=== PATIENT | female | born 1995 | race Caucasian/White ===

== ENCOUNTER 2019-08-12 21:17 | Inpatient (IN) ==
[2019-08-12 22:14] LABS: URINE SOURCE VOIDED
[2019-08-12 22:20] LABS: BILIRUBIN URINE NEGATIVE (NEGATIVE); BLOOD URINE NEGATIVE (NEGATIVE); COLOR YELLOW; GLUCOSE URINE NEGATIVE (NEGATIVE); KETONE URINE TRACE mg/dL (NEGATIVE); LEUKOCYTES URINE NEGATIVE (NEGATIVE); NITRITE URINE NEGATIVE (NEGATIVE); PROTEIN URINE 30 mg/dL (NEGATIVE); TURBIDITY URINE CLEAR (CLEAR); UROBILINOGEN URINE 2 mg/dL (NORMAL)
[2019-08-12] MEDS ORDERED: AMPICILLIN 2 GM in NS 100 ML IV ONE (22:33)
[2019-08-12] MEDS ORDERED: TYLENOL PO PRN (22:33)
[2019-08-12] MEDS ORDERED: PEPCID PO ONE (22:33)
[2019-08-12] MEDS ORDERED: STADOL IV PRN (22:33)
[2019-08-12] MEDS ORDERED: PEPCID PO PRN (22:33)
[2019-08-12] MEDS ORDERED: REGLAN PO ONE (22:33)
[2019-08-12] MEDS ORDERED: ZOFRAN IV PRN (22:33)
[2019-08-12] MEDS ORDERED: KEFZOL 1 GM/D5W 1 GM/50 ML IVPB IV PRN (22:33)
[2019-08-12] MEDS ORDERED: PEPCID IV PRN (22:33)
[2019-08-12 22:40] LABS: UR AMPHETAMINES QUAL NONE DETECTED (NONE DETECT); UR BARBITUATES QUAL NONE DETECTED (NONE DETECT); UR BENZODIAZEPIN QUAL NONE DETECTED (NONE DETECT); UR CANNABINOIDS QUAL NONE DETECTED (NONE DETECT); UR COCAINE QUAL NONE DETECTED (NONE DETECT); UR METHADONE QUAL NONE DETECTED (NONE DETECT); UR OPIATES QUAL NONE DETECTED (NONE DETECT); UR OXYCODONE QUAL NONE DETECTED (NONE DETECT); UR PCP QUAL NONE DETECTED (NONE DETECT)
[2019-08-12] MEDS ORDERED: LR 1,000 ML IV SCH (22:45)
[2019-08-12] MEDS ORDERED: PITOCIN 30 UNITS/NS 30 UNIT/500 ML IV.SOLN IV SCH (22:45)
[2019-08-12] MEDS ORDERED: SODIUM CHLORIDE 0.9% INJ SCH (22:45)
[2019-08-12 23:35] LABS: BASO# 0.02 X1000 (0.0-0.2); BASO% 0.2 % (0.0-0.8); EOS# 0.05 X1000 (0.0-0.7); EOS% 0.4 % (0.0-10.0); HEMATOCRIT 40.6 % (37.0-47.0); HEMOGLOBIN 13.6 g/dL (12.0-16.0); IMM GRAN# 0.08 X1000 (0.0-0.04); IMM GRAN% 0.7 % (0.0-0.5); LYMPH% 17.2 % (20.5-51.1); MCH 31.1 PG (27-31); MCHC 33.5 g/dL (33-37); MCV 92.7 FL (81-99); MONO# 0.88 X1000 (0.11-0.59); MONO% 7.6 % (1.7-9.3); MPV 11.1 FL (7.4-10.4); NEUT# 8.57 X1000 (1.4-6.5); NEUT% 73.9 % (42.2-75.2); PLT 242 X1000 (130-400); RBC 4.38 XMIL (4.2-5.4); RDW 13.9 % (11.5-14.5)
[2019-08-13 00:18] LABS: RPR NON-REACTIVE (NONREACTIVE); RUBELLA SCREEN NON IMMUNE (IMMUNE)
[2019-08-13] MEDS ORDERED: FENTANYL ONE (00:30)
[2019-08-13] MEDS ORDERED: FENTANYL-BUPIV-NS 500 MCG-0.125% 250 ML EPIDURAL SCH (00:30)
[2019-08-13] MEDS ORDERED: NAROPIN 0.2% INJ ONE (00:32)
[2019-08-13 00:33] LABS: RAPID HIV PRESUMPTIVE NEGATIVE
[2019-08-13] MEDS ORDERED: AMPICILLIN 1 GM in NS 50 ML IV SCH (02:34)
[2019-08-13] MEDS ORDERED: MINERAL OIL MISC ONE (04:53)
[2019-08-13] MEDS ORDERED: XYLOCAINE-MPF 1% INJ ONE (04:53)
--- NOTE | 2019-08-13 06:22 | PROVIDER PROGRESS NOTE ---
Progress Note Delivery Summary Infant on the perineum with maternal effort. Viable female delivered at 0551 in cephalic presentation. Apgars 8,9 weight 6lbs 3oz. Intact placenta with 3v cord delivered at 0552. Right vaginal sidewall and 1st degree vaginal laceration were repaired in the usual fashion with a 2.0 Vicryl. EBL 200cc
[2019-08-13] MEDS ORDERED: PITOCIN 20 UNITS/NS 20 UNITS/1,000 ML IV.SOLN ONE (07:13)
[2019-08-13] MEDS ORDERED: PITOCIN IM PRN (07:29)
[2019-08-13] MEDS ORDERED: BENADRYL PO PRN (07:29)
[2019-08-13] MEDS ORDERED: BENADRYL IV PRN (07:29)
[2019-08-13] MEDS ORDERED: MOTRIN PO PRN (07:29)
[2019-08-13] MEDS ORDERED: XYLOCAINE-MPF 1% INJ PRN (07:29)
[2019-08-13] MEDS ORDERED: CYTOTEC PO PRN (07:29)
[2019-08-13] MEDS ORDERED: PERI MEDS (DERMOPLAST/NUPERCAINAL/TUCKS) MISC PRN (07:29)
[2019-08-13] MEDS ORDERED: BOOSTRIX VACCINE IM ONE (07:29)
[2019-08-13] MEDS ORDERED: HYDROXYZINE IM PRN (07:29)
[2019-08-13] MEDS ORDERED: M-M-R II VACCINE SUBQ ONE (07:29)
[2019-08-13] MEDS ORDERED: MINERAL OIL PO PRN (07:29)
[2019-08-13] MEDS ORDERED: AMBIEN PO PRN (07:29)
[2019-08-13] MEDS ORDERED: ATARAX PO PRN (07:29)
[2019-08-13] MEDS ORDERED: PITOCIN 20 UNITS/NS 20 UNITS/1,000 ML IV.SOLN IV SCH (07:30)
[2019-08-13] MEDS ORDERED: PITOCIN 30 UNITS/NS 30 UNIT/500 ML IV.SOLN IV SCH (07:30)
[2019-08-13 10:17] LABS: HIV ANTIBODY SCREEN SEE COMMENTS
[2019-08-13 10:41] LABS: HEPATITIS B SURFACE ANTIGEN SEE COMMENTS
[2019-08-13] MEDS: PERICOLACE PO SCH (20:19)
[2019-08-14 06:20] LABS: HEMATOCRIT 36.4 % (37.0-47.0); HEMOGLOBIN 11.9 g/dL (12.0-16.0); MCH 31.1 PG (27-31); MCHC 32.7 g/dL (33-37); MPV 10.3 FL (7.4-10.4); RBC 3.83 XMIL (4.2-5.4); RDW 14.4 % (11.5-14.5); WBC 12.97 X1000 (4.8-10.8)
--- NOTE | 2019-08-14 06:50 | PROVIDER DOCUMENTATION ---
This chart was entered by Waleska Guerrero Scribe, acting as scribe for Deyvi Michelle MD. HPI-Female /OB/Breast - General Chief Complaint: OB-Active Labor Stated Complaint: 39 WKS, SULY Time Seen by Provider: 08/12/19 21:20 Source: reports: patient Allergies/Adverse Reactions: Patient Allergies Allergy/AdvReac Type Severity Reaction Status Date / Time shellfish derived Allergy Severe ANAPHYLAXIS Verified 08/12/19 22:45 coconut Allergy ANAPHYLAXIS Verified 08/12/19 22:45 Home Medications: Home Medication List Medication Instructions Recorded Confirmed Last Taken Type Vit No.130/Iron/Folic 1 ea PO DAILY 08/12/19 08/12/19 08/12/19 09:00 History [ Vitamins] - History of Present Illness-Female /OB Nature of Presenting Problem: pt is a 24 yr old female, pt reports she is 39weeks , 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 water has not broke. pt denies any care. Does patient report she is ?: Yes Location of complaint: reports: other (gen abdomen) Radiation: reports: none Quality of Pain: reports: cramping Severity in ED: reports: moderate Onset/Duration: reports: 4-6 hours ago Timing: reports: changing over time, getting worse Context/Activities at Onset: reports: light activity Vaginal Symptoms: denies: abnormal bleeding, discharge, passing clots/tissue Vaginal Bleeding Amount: None Urinary Symptoms: reports: no symptoms Related Symptoms: reports: pelvic pain, abdominal pain Leakage of Fluid: none Contraception: reports: none Modifying Factors: improves with: nothing Associated Symptoms: reports: denies symptoms Similar Symptoms Previously?: No Recently seen or treated by another doctor?: No - LMP/ History Menstrual Status: currently (39 week) : 1 Para: 0 : 0 CURRENT Problems: none PREVIOUS Problems: reports: none Contractions/Pelvic Pain: reports: moderate, regular Contraction Frequency (every____min): 3 Contraction Duration (mins): 1 Review of Systems - Adult - REVIEW OF SYSTEMS - ADULT Constitutional: denies: chills, fever Eyes: reports: no symptoms reported Ears, Nose, Mouth & Throat: reports: no symptoms reported Cardiovascular: reports: no symptoms reported Respiratory: denies: cough, shortness of breath Gastrointestinal: reports: abdominal pain. denies: nausea, vomiting Genitourinary: denies: dysuria, frequency, urinary retention Musculoskeletal: denies: back pain, neck pain Integumentary: reports: no symptoms reported Neurological: reports: no symptoms reported Psychiatric: reports: no symptoms reported Endocrine: reports: no symptoms reported Hematologic/Lymphatic: reports: no symptoms reported Allergic/Immunologic: reports: no symptoms reported All Other Systems: Reviewed and Negative Past History - Adult - PAST MEDICAL HISTORY-ADULT Review of Records: reports: Nursing Assessment Review, Medications Reviewed, Social history reviewed & non-contributory. Major Childhood Illnesses: reports: denies history Cardiovascular: reports: denies history Respiratory: reports: denies history Gastrointestinal: reports: denies history Obstetrical/Gynecological: reports: denies history Genitourinary: reports: denies history Musculoskeletal: reports: denies history Neurological: reports: denies history Endocrine/Immune: reports: denies history Other Conditions: reports: denies history - IMMUNIZATION STATUS Childhood Immunizations: See Nurse Assessment Flu Vaccine: See Nurse Assessment - FAMILY HISTORY Family History: reviewed, not pertinent - SOCIAL HISTORY Living Situation: family Physical Exam-General - PHYSICAL EXAM-ADULT Initial Vital Signs Reviewed: Yes - CONSTITUTIONAL General Appearance: appears well, alert, no apparent distress - EYES Eyes: PERRL/EOMI - HEAD, EARS, NOSE, MOUTH & THROAT HENMT: normocephalic/atraumatic, moist mucous membranes, normal ENT inspection - NECK Neck: non-tender, full range of motion, supple, normal inspection - RESPIRATORY Respiratory: lungs clear, normal breath sounds - CARDIOVASCULAR Cardiovascular: normal peripheral pulses, no edema, tachycardia - GASTROINTESTINAL (ABDOMEN) Abdominal Exam: tenderness - GENITOURINARY Female Genitalia/Pelvic Exam: external exam normal, other (closed cervix). negative: blood, discharge - LYMPHATIC Lymphatic: no adenopathy - MUSCULOSKELETAL Back Exam: normal inspection Extremity: normal range of motion, non-tender, normal gait, normal inspection - SKIN Integumentary: normal color, normal turgor, warm/dry - NEUROLOGIC Neurologic: grossly normal - PSYCHIATRIC Psych/Mental Status: normal mood/affect Progress - PLAN OF CARE/RESULTS Progress/Plan/Lab Results: Orders Category Date Time Status Admit Patient To Observation Status Routine AdmDCTranf 08/12/19 22:02 Active Cont. Electronic Monitor DIRECTED Care 08/12/19 22:02 Completed Document Gestational Age NOW Care 08/12/19 22:02 Completed Heart Tones NOW Care 08/12/19 21:27 Completed URINALYSIS DIPSTICK ONLY [URINALYSIS] Urgent Lab 08/12/19 22:05 Completed URINE DRUG SCREEN Urgent Lab 08/12/19 22:05 Completed Result Diagrams: 08/14/19 06:03 08/12/19 23:00 - CONSULTS/PCP/HOSPITALIST Notification #1 *Consult/PCP/Hospitalist*: dr trinidad Time Discussed: 21:22 Reason/Comments: plan of care for pt transfer Consult Disposition: other (transfer to main for OB admit) Departure - Departure Date of Disposition Decision: 08/12/19 Time of Disposition Decision: 22:00 DIAGNOSIS: Active labor at term Disposition: OTHER 70 Certified Medical Emergency: Emergent Condition: Stable - Critical Care Note This patient required my direct & personal management of CC.: No Attestation - Physician/ CAROL Attestation Patient care was provided by Advanced Practice Provider:: No The physician spent face to face time with patient:: Yes Advanced Practice Provider documentation review:: Supervising physician onsite and consulted in the evaluation and care of this patient. The physician did have a face to face encounter with the patient. This chart was documented by the indicated scribe, (Waleska Guerrero Scribe) and accurately reflects the services I performed and decisions made by me, Deyvi Michelle MD, as attested by the provider's signature.
--- NOTE | 2019-08-14 06:51 | OB/GYN PROGRESS NOTE ---
- Subjective Pt is a PPD#1 s/p . Reports pain well controlled on PO pain med. Ambulating and urinating without difficulty. Tolerating regular diet. Denies N/V. Reports +bottle feeding and decreased lochia. OB Physical Exam Vital Signs - 8 hr 08/13/19 23:03 Temperature 97.4 F L Pulse Rate 99 H Respiratory Rate 18 Blood Pressure 133/71 O2 Sat by Pulse Oximetry 97 - CONSTITUTIONAL General Appearance: appears well, alert, no apparent distress - RESPIRATORY Respiratory: lungs clear, normal breath sounds - CARDIOVASCULAR Cardiovascular: regular rate, rhythm - GASTROINTESTINAL (ABDOMEN) Abdominal Exam: non tender, soft - MUSCULOSKELETAL Extremity: non-tender, no calf tenderness - PSYCHIATRIC Psych/Mental Status: normal mood/affect, oriented x 3 Active Medications Generic Name Dose Route Start Last Admin Trade Name Freq PRN Reason Stop Dose Admin Acetaminophen 650 mg 08/12/19 22:33 Tylenol PO Q4-6H PRN PRN Headache Benzocaine 1 each 08/13/19 07:29 08/13/19 11:34 Marjorie Meds (Dermoplast/Nupercainal/Tucks) MISC 1 applic 3-4XDAY PRN PRN Administration episiotomy/hemorrhoids Diphenhydramine HCl 25 mg 08/13/19 07:29 Benadryl PO Q4H PRN PRN Itching Famotidine 40 mg 08/12/19 22:33 Pepcid PO Q12H PRN PRN GI upset or indigestion Hydroxyzine HCl 50 mg 08/13/19 07:29 Atarax PO Q3-4H PRN PRN Nausea Hydroxyzine HCl 50 mg 08/13/19 07:29 Hydroxyzine IM Q3-4H PRN PRN Nausea Ibuprofen 800 mg 08/13/19 07:29 Motrin PO Q8H PRN PRN cramping Misoprostol 800 microgm 08/13/19 07:29 Cytotec PO PRN PRN Severe bleeding Oxytocin 20 unit 08/13/19 07:29 Pitocin IM PRN PRN Severe bleeding Senna/Docusate Sodium 1 each 08/13/19 21:00 08/13/19 20:19 Pericolace PO 1 each QHS DASIA Administration Zolpidem Tartrate 10 mg 08/13/19 07:29 Ambien PO HS PRN PRN Sleep Laboratory Results - last 24 hr 08/12/19 08/13/19 08/14/19 23:00 00:33 06:03 WBC 12.97 H RBC 3.83 L Hgb 11.9 L Hct 36.4 L MCV 95.0 MCH 31.1 H MCHC 32.7 L RDW Std Deviation 14.4 Plt Count 212 MPV 10.3 Hep Bs Antigen SEE COMMENTS HIV 1&2 Antibody Screen SEE COMMENTS OB Assessment & Plan (1) Vaginal delivery Status: Acute Plan: PPD#1 s/p -HD stable -pain well controlled, con't po pain meds -oob to ambulation -reg diet -pt not sure about contraception -con't routine care -plan for d/c home tomorrow
[2019-08-14] MEDS: PERICOLACE PO SCH (20:51)
[2019-08-15 07:47] VITALS: BP 137/88
--- NOTE | 2019-08-15 11:08 | OB/GYN PROGRESS NOTE ---
- Subjective PPD#2 S/P . Doing well, no c/o. Ready to go home. No CP or SOB. No Leg pains. Ambulating and voiding without difficulty. Lochia minimal. I did discuss benefits of breast feeding. Patient is choosing to Bottle feed. OB Physical Exam Vital Signs - 8 hr 08/15/19 05:47 08/15/19 07:45 Temperature 97.3 F L 97.3 F L Pulse Rate 79 86 Respiratory Rate 18 16 Blood Pressure 135/72 137/88 O2 Sat by Pulse Oximetry 100 97 - CONSTITUTIONAL General Appearance: appears well, alert, no apparent distress - RESPIRATORY Respiratory: lungs clear, normal breath sounds - CARDIOVASCULAR Cardiovascular: normal peripheral pulses, regular rate, rhythm - CHEST (BREASTS) Chest/Breast: deferred - GASTROINTESTINAL (ABDOMEN) Abdominal Exam: normal bowel sounds, non tender, soft, other (uterus firm, below umbilicus.) - GENITOURINARY Female Genitalia/Pelvic Exam: external exam normal, other (scant lochia on pad only.) - MUSCULOSKELETAL Extremity: non-tender, no pedal edema - PSYCHIATRIC Psych/Mental Status: normal mood/affect, oriented x 3 Active Medications Generic Name Dose Route Start Last Admin Trade Name Freq PRN Reason Stop Dose Admin Acetaminophen 650 mg 08/12/19 22:33 Tylenol PO Q4-6H PRN PRN Headache Benzocaine 1 each 08/13/19 07:29 08/13/19 11:34 Marjorie Meds (Dermoplast/Nupercainal/Tucks) MISC 1 applic 3-4XDAY PRN PRN Administration episiotomy/hemorrhoids Diphenhydramine HCl 25 mg 08/13/19 07:29 Benadryl PO Q4H PRN PRN Itching Famotidine 40 mg 08/12/19 22:33 Pepcid PO Q12H PRN PRN GI upset or indigestion Hydroxyzine HCl 50 mg 08/13/19 07:29 Atarax PO Q3-4H PRN PRN Nausea Hydroxyzine HCl 50 mg 08/13/19 07:29 Hydroxyzine IM Q3-4H PRN PRN Nausea Ibuprofen 800 mg 08/13/19 07:29 08/14/19 20:52 Motrin PO 800 mg Q8H PRN PRN Administration cramping Misoprostol 800 microgm 08/13/19 07:29 Cytotec PO PRN PRN Severe bleeding Oxytocin 20 unit 08/13/19 07:29 Pitocin IM PRN PRN Severe bleeding Senna/Docusate Sodium 1 each 08/13/19 21:00 08/14/19 20:51 Pericolace PO 1 each QHS DASIA Administration Zolpidem Tartrate 10 mg 08/13/19 07:29 Ambien PO HS PRN PRN Sleep OB Assessment & Plan (1) Discharged to home Status: Acute Plan: Stable, doing well. Discharged to home PPD #2. (2) Vaginal delivery Status: Acute Plan: DISCHARGE NOTE Stable - discharge to Home PP Day #2. PP hgb 11.9. 6 week PP visit importance stressed. Numbers given to make appointment with office in [place]. Discharge instructions discussed with patient. NO heavy lifting - less than baby for 4-6 weeks then gradual increase in weight. Nothing in vagina for 6 we eks - NO SEX or tampon use. No driving for 10-14 days or until pain free. Patient states that she does not drive. Continue PNV use 1 po daily-still at home. Motrin use OTC discussed 600mg (3 OTC tablets) every 6 hours prn pain or cramping. NO RX given. Bottle feeding. Lochia can last up to 6 weeks post delivery. Reassurance given. If bleeding heavier than heaviest period to call. Discussed with patient control and options. Declines depo provera prior to discharge. Will consider options and plan for 6 week PP visit. Discussed PP depression signs and symptoms with patient. At present no depression or anxiety issues. Call if any problems and to be seen sooner than 6 weeks if needed. States understanding.
[2019-08-15] MEDS ORDERED: FLU VACCINE IM ONE (12:09)
== END 2019-08-15 13:34 | disposition home or self-care (01) | DRG 806 ==
LOC: P.ED 21:17 → OPLD 21:58 → LD 22:00
PROVIDERS: ADMIT Obstetrics & Gynecology; ATTEND Obstetrics & Gynecology